=== PATIENT | female | born 1985 | race Caucasian/White ===

== ENCOUNTER 2021-08-26 14:49 | Inpatient (IN) ==
[2021-08-26] MEDS ORDERED: MetroNIDAZOLE 500 MG/100 ML 500 MG/100 ML BAG IVPB ONE (15:48)
[2021-08-26] MEDS ORDERED: Cefepime HCl 2,000 MG in 0.9 % Sodium Chloride 10 ML IVP ONE (15:48)
[2021-08-26] MEDS ORDERED: Isovue-370 500 ML BOTTLE IVP ONE (15:49)
[2021-08-26] MEDS: 0.9 % Sodium Chloride 1,000 ML IVC SCH ×2 (15:58→16:58)
[2021-08-26 16:10] LABS: Basophils % 0.1 %; Hemoglobin 6.9 g/dL (11.5-15.4); Monocytes % 4.7 %; Red Blood Count 3.14 M/mcL (3.82-4.97)
[2021-08-26 16:11] LABS: Hematocrit 21.1 % (35.3-44.9); Immature Granulocytes % 1.8 % (0-4); Immature Platelets 33.1 % (1.1-6.1); Lymphocytes % 6.5 %; Mean Corpuscular HGB Conc 32.7 g/dL (31.6-35.5); Mean Corpuscular Volume 67.2 fL (83.0-100.0); Monocytes # 0.7 K/mcL (0.0-1.3); Nucleated Red Blood Cells 0.2 /100 WBC (0); Red Cell Distribution Width 19.4 % (11.5-14.5); Segmented Neutrophils % 86.9 %; White Blood Count 14.8 K/mcL (4.3-11.1)
[2021-08-26 16:13] LABS: VBG HCO3 22 mEq/L (21-27); VBG PCO2 32 mmHg (41-51); VBG PH 7.44 pH Units (7.32-7.42); VBG PO2 43 mmHg (25-50)
[2021-08-26 16:15] LABS: INR 1.6; Prothrombin Time 18.2 Seconds (9.4-12.1)
[2021-08-26 16:17] LABS: Activated Partial Thrombo Time 22.2 Seconds (26.0-36.0)
[2021-08-26 16:31] LABS: Platelet Count 34 K/mcL (140-400)
[2021-08-26 16:32] LABS: Neutrophils # 12.9 K/mcL (1.6-8.9)
[2021-08-26 16:33] LABS: Anisocytosis 1+ (Not Present); Hypochromasia Present (Not Present); Microcytosis Present (Not Present); Ovalocytes 1+ (Not Present); Platelet Estimate Marked Decrease (Normal); Polychromasia 1+ (Not Present); Toxic Granulation Present (Not Present)
[2021-08-26 16:36] LABS: Alanine Aminotransferase 35 Units/L (7-52); Albumin 2.5 g/dL (3.5-5.7); Albumin/Globulin Ratio 0.6 (1.1-2.2); Alkaline Phosphatase 129 Units/L (34-104); Aspartate Amino Transferase 92 Units/L (13-39); BUN/Creatinine Ratio 45 (6-26); Bilirubin,Direct 0.5 mg/dL (0.0-0.2); Bilirubin,Indirect 0.5 mg/dL (0.0-1.0); Blood Urea Nitrogen 40 mg/dL (6-20); Calcium 7.4 mg/dL (8.6-10.3); Carbon Dioxide 22 mEq/L (23-29); Chloride 86 mEq/L (98-107); Globulin 4.4 g/dL (2.4-3.5); Glucose 135 mg/dL (70-105); Lipase 124 Units/L (11-82); Magnesium 2.6 mg/dL (1.6-2.6); Osmolality,Calculated 268 (280-300); Phosphorous 4.2 mg/dL (2.7-4.5); Potassium 3.5 mEq/L (3.5-5.1); Sodium 123 mEq/L (136-145); Total Protein 6.9 g/dL (6.4-8.9); Troponin I < 0.03 ng/mL (< 0.04); eGFR For African Americans > 60 (> 60); eGFR For Non-African Americans > 60 (> 60)
[2021-08-26 16:41] LABS: Amorphous Sediment,Urine Few per hpf (None-Few); Bacteria,Urine Few per hpf (None-Few); Bilirubin,Urine Negative (Negative); Blood,Urine Negative (Negative); Clarity,Urine Turbid (Clear); Color,Urine Yellow (Yellow); Glucose,Urine (UA) Normal (Normal); Hyaline Casts,Urine Few per lpf (None Seen); Ketones,Urine Negative (Negative); Leukocyte Esterase,Urine Trace (Negative); Mucus,Urine Few per lpf (None-Few); Nitrite,Urine Negative (Negative); Protein,Urine 30 mg/dL (Neg-Trace); RBC,Urine 0-3 per hpf (0-3); Specific Gravity,Urine 1.015 (1.010-1.025); Squamous Epithelial Cell,Urine Few per hpf (None-Few); Urobilinogen,Urine Normal (Normal)
[2021-08-26] MEDS ORDERED: 0.9 % Sodium Chloride 1,000 ML IVC ONE ×2 (16:59→21:00)
[2021-08-26] MEDS ORDERED: Gadolinium Contrast Agent (WT Based) IV PRN (17:12)
[2021-08-26 17:43] LABS: Amphetamine Screen,Urine Negative ng/mL (Cutoff=1000); Barbiturate Screen,Urine Negative ng/mL (Cutoff=200); Benzodiazepines Screen,Urine Positive ng/mL (Cutoff=200); Cannabinoid Screen,Urine Negative ng/mL (Cutoff = 50); Cocaine Screen,Urine Negative ng/mL (Cutoff= 300); Opiate Screen,Urine Negative ng/mL (Cutoff=300); Phencyclidine Screen,Urine Negative ng/mL (Cutoff=25)
[2021-08-26] MEDS ORDERED: *HR* Heparin 5,000 UNIT/ML VIAL IVP PRN ×2 (18:41)
[2021-08-26] MEDS ORDERED: *HR* Heparin 5,000 UNIT/ML VIAL IVP ONE (18:41)
[2021-08-26] MEDS ORDERED: Heparin 25,000UNIT/250ML 1/2NS 25,000 UNIT/250 ML IV.SOLN IVC SCH (18:45)
[2021-08-26] MEDS: Norepinephrine 4 MG/254 ML IV.SOLN IVC SCH ×2 (19:48→22:35)
[2021-08-26] MEDS ORDERED: Morphine Sulfate 2 MG/ML SYRINGE IVP ONE ×2 (19:54→21:11)
[2021-08-26] MEDS: Calcium Gluconate 1gm/50mL 1 GM/50 ML BAG IVPB SCH ×2 (19:58→20:23)
[2021-08-26] MEDS ORDERED: Naloxone 0.4 MG/ML INJ IVP PRN (21:53)
[2021-08-26] MEDS ORDERED: Perflutren Lipid Microsphere 1.3 ML in 0.9 % Sodium Chloride 8.7 ML IVP PRN (22:17)
[2021-08-26 22:35] LABS: Bilirubin,Urine Negative (Negative); Blood,Urine Negative (Negative); Clarity,Urine Clear (Clear); Color,Urine Light-Yellow (Yellow); Glucose,Urine (UA) Normal (Normal); Ketones,Urine Negative (Negative); Leukocyte Esterase,Urine Negative (Negative); Mucus,Urine Few per lpf (None-Few); Nitrite,Urine Negative (Negative); Protein,Urine Trace mg/dL (Neg-Trace); Specific Gravity,Urine 1.029 (1.010-1.025); Urobilinogen,Urine Normal (Normal)
[2021-08-26] MEDS: Albumin 25% 25gram/100mL 25 GM/100 ML IV.SOLN IVPB SCH (22:35)
[2021-08-26] MEDS ORDERED: 0.9 % Sodium Chloride 1,000 ML IVC SCH (23:00)
[2021-08-26 23:28] LABS: Basophils % 0.1 %
[2021-08-26 23:30] LABS: Hematocrit 18.1 % (35.3-44.9); Immature Granulocytes % 1.5 % (0-4); Immature Platelets 23.1 % (1.1-6.1); Lymphocytes # 1.2 K/mcL (0.6-4.6); Lymphocytes % 6.6 %; Mean Corpuscular Volume 68.6 fL (83.0-100.0); Monocytes # 1.5 K/mcL (0.0-1.3); Monocytes % 8.2 %; Nucleated Red Blood Cells 0.1 /100 WBC (0); Red Blood Count 2.64 M/mcL (3.82-4.97); Red Cell Distribution Width 19.5 % (11.5-14.5); Segmented Neutrophils % 83.6 %; White Blood Count 18.4 K/mcL (4.3-11.1)
[2021-08-26 23:31] LABS: Platelet Count 34 K/mcL (140-400)
[2021-08-26 23:32] LABS: Neutrophils # 15.4 K/mcL (1.6-8.9)
[2021-08-26 23:33] LABS: Hemoglobin 5.8 g/dL (11.5-15.4)
[2021-08-26 23:37] LABS: Heparin anti-factor XA UFH 0.04 IU/mL (0.30-0.70); INR 1.5; Prothrombin Time 16.5 Seconds (9.4-12.1)
[2021-08-26] MEDS ORDERED: 0.9 % Sodium Chloride 250 ML IVC SCH (23:45)
[2021-08-26 23:46] LABS: Anisocytosis 2+ (Not Present); Microcytosis Present (Not Present); Platelet Estimate Marked Decrease (Normal); Polychromasia 1+ (Not Present)
[2021-08-26 23:47] LABS: BUN/Creatinine Ratio 44 (6-26); Blood Urea Nitrogen 23 mg/dL (6-20); Calcium 6.6 mg/dL (8.6-10.3); Carbon Dioxide 22 mEq/L (23-29); Chloride 102 mEq/L (98-107); Glucose 128 mg/dL (70-105); Lactate Dehydrogenase 187 Units/L (140-271); Osmolality,Calculated 277 (280-300); Potassium 3.1 mEq/L (3.5-5.1); Sodium 131 mEq/L (136-145); eGFR For African Americans > 60 (> 60); eGFR For Non-African Americans > 60 (> 60)
[2021-08-26] MEDS ORDERED: Acetaminophen IV 1,000 MG/100 ML BAG IVPB ONE (23:47)
[2021-08-26] MEDS ORDERED: Famotidine 20 MG/2 ML VIAL IVP ONE (23:48)
[2021-08-27] MEDS ORDERED: Calcium Gluconate 1gm/50mL 1 GM/50 ML BAG IVPB PRN (01:54)
[2021-08-27] MEDS ORDERED: Piperacillin/Tazobactam 3.375 GM in 0.9 % Sodium Chloride Mini Bag 100 ML IVPB SCH (03:00)
[2021-08-27] MEDS: Ringers Solution, Lactated 1,000 ML IVC SCH (03:15)
[2021-08-27 03:47] LABS: Campylobacter by PCR Not detected (Not detect)
[2021-08-27 03:48] LABS: C.difficile Toxin A/B Gene PCR DETECTED (Not detect)
[2021-08-27 03:49] LABS: Adenovirus F 40/41 PCR Not detected (Not detect); Astrovirus PCR Not detected (Not detect); Cryptosporidium by PCR Not detected (Not detect); Cyclospora cayetanensis PCR Not detected (Not detect); E. coli O157 by PCR Not detected (Not detect); Entamoeba histolytica PCR Not detected (Not detect); Enteroaggregative E.coli(EAEC) Not detected (Not detect); Enteropathogenic E.coli(EPEC) Not detected (Not detect); Enterotoxigenic E.coli (ETEC) Not detected (Not detect); Giardia lamblia PCR Not detected (Not detect); Norovirus GI/GII PCR Not detected (Not detect); Plesiomonas shigelloides PCR Not detected (Not detect); Rotavirus A PCR Not detected (Not detect); Salmonella PCR Not detected (Not detect); Sapovirus PCR Not detected (Not detect); Shig/EnteroinvasiveE coli EIEC Not detected (Not detect); Shigalike tox-prod E coli STEC Not detected (Not detect); Vibrio PCR Not detected (Not detect); Vibrio cholerae PCR Not detected (Not detect); Yersinia enterocolitica PCR Not detected (Not detect)
[2021-08-27 04:45] LABS: Enterococcus faecalis by PCR Not Detected (Not Detect); Enterococcus faecium by PCR Not Detected (Not Detect); Staphylococcus by PCR Not Detected (Not Detect); mecA/C & MREJ (MRSA) Gene Not Detected (Not Detect)
[2021-08-27 04:46] LABS: A.calcoaceticus-baumannii cplx Not Detected (Not Detect); Bacteroides fragilis by PCR Not Detected (Not Detect); Candida albicans by PCR Not Detected (Not Detect); Candida auris by PCR Not Detected (Not Detect); Candida glabrata by PCR Not Detected (Not Detect); Candida krusei by PCR Not Detected (Not Detect); Candida parapsilosis by PCR Not Detected (Not Detect); Candida tropicalis by PCR Not Detected (Not Detect); Crypto. neoformans/gattii PCR Not Detected (Not Detect); Enterobacter cloacae Cmplx PCR Not Detected (Not Detect); Enterobacterales by PCR Not Detected (Not Detect); Escherichia coli by PCR Not Detected (Not Detect); Klebs. pneumoniae group by PCR Not Detected (Not Detect); Klebsiella aerogenes by PCR Not Detected (Not Detect); Klebsiella oxytoca by PCR Not Detected (Not Detect); Proteus by PCR Not Detected (Not Detect); Pseudomonas aeruginosa by PCR Not Detected (Not Detect); Salmonella species by PCR Not Detected (Not Detect); Serratia marcescens by PCR Not Detected (Not Detect); Staph epidermidis by PCR Not Detected (Not Detect); Staph lugdunensis by PCR Not Detected (Not Detect); Staphylococcus aureus by PCR DETECTED (Not Detect); Stenotrophomonas maltophilia Not Detected (Not Detect); Streptococcus agalactiae(B)PCR Not Detected (Not Detect); Streptococcus by PCR Not Detected (Not Detect); Streptococcus pneumoniae PCR Not Detected (Not Detect); Streptococcus pyogenes (A) PCR Not Detected (Not Detect)
[2021-08-27 05:06] LABS: Alanine Aminotransferase 23 Units/L (7-52); Albumin 1.8 g/dL (3.5-5.7); Albumin/Globulin Ratio 0.6 (1.1-2.2); Alkaline Phosphatase 86 Units/L (34-104); Aspartate Amino Transferase 56 Units/L (13-39); Bilirubin,Direct 0.4 mg/dL (0.0-0.2); Bilirubin,Indirect 0.4 mg/dL (0.0-1.0); Bilirubin,Total 0.8 mg/dL (0.3-1.0); Globulin 3.2 g/dL (2.4-3.5)
[2021-08-27 05:08] LABS: Basophils % 0.2 %; Hemoglobin 6.3 g/dL (11.5-15.4); Lymphocytes % 10.7 %
[2021-08-27 05:10] LABS: Eosinophils % 0.2 %; Immature Granulocytes % 1.5 % (0-4); Immature Platelets 22.5 % (1.1-6.1); Lymphocytes # 1.2 K/mcL (0.6-4.6); Mean Corpuscular HGB Conc 33.2 g/dL (31.6-35.5); Mean Corpuscular Hemoglobin 24.3 pg (28.0-33.3); Mean Corpuscular Volume 73.4 fL (83.0-100.0); Monocytes % 9.4 %; Neutrophils # 8.6 K/mcL (1.6-8.9); Red Blood Count 2.59 M/mcL (3.82-4.97); Red Cell Distribution Width 22.8 % (11.5-14.5)
[2021-08-27 05:14] LABS: INR 1.6; Prothrombin Time 17.5 Seconds (9.4-12.1)
[2021-08-27 05:28] LABS: % Iron Saturation 16 % (15-50); Alanine Aminotransferase 18 Units/L (7-52); Albumin/Globulin Ratio 0.7 (1.1-2.2); Alkaline Phosphatase 69 Units/L (34-104); Aspartate Amino Transferase 42 Units/L (13-39); BUN/Creatinine Ratio 46 (6-26); Blood Urea Nitrogen 22 mg/dL (6-20); Calcium 6.4 mg/dL (8.6-10.3); Carbon Dioxide 22 mEq/L (23-29); Chloride 106 mEq/L (98-107); Globulin 2.8 g/dL (2.4-3.5); Glucose 107 mg/dL (70-105); Iron 28 mcg/dL (50-170); Osmolality,Calculated 280 (280-300); Sodium 133 mEq/L (136-145); Total Protein 4.8 g/dL (6.4-8.9); Transferrin 122 mg/dL (203-362); eGFR For African Americans > 60 (> 60); eGFR For Non-African Americans > 60 (> 60)
[2021-08-27 05:30] LABS: Platelet Count 28 K/mcL (140-400)
[2021-08-27 05:31] LABS: Anisocytosis 3+ (Not Present); Microcytosis Present (Not Present); Platelet Estimate Decreased (Normal); Poikilocytosis 1+ (Not Present); Polychromasia 1+ (Not Present); Target Cells 1+ (Not Present)
[2021-08-27 05:45] LABS: Ferritin 259 ng/mL (10-120)
[2021-08-27] MEDS ORDERED: 0.9 % Sodium Chloride 250 ML IVC SCH (05:45)
[2021-08-27] MEDS: Potassium Chloride 40 MEQ/200 ML BAG IVPB PRN ×2 (05:47→20:57)
[2021-08-27] MEDS: Calcium Gluconate 1gm/50mL 1 GM/50 ML BAG IVPB SCH ×2 (05:48→07:24)
[2021-08-27 05:51] LABS: Folate 11.6 ng/mL (3.0-16.0)
[2021-08-27 06:03] LABS: VBG Ionized Calcium 1.07 mmol/L (1.15-1.35)
[2021-08-27 06:12] LABS: Hepatitis B Surface Antigen Nonreactive (Nonreactive)
[2021-08-27] MEDS: Albumin 25% 25gram/100mL 25 GM/100 ML IV.SOLN IVPB SCH ×3 (06:29→22:35)
[2021-08-27 06:41] LABS: HIV-1&2 Antibody & p24 Ag Nonreactive (Nonreactive); Hepatitis A Antibody IgM Nonreactive (Nonreactive)
[2021-08-27 10:13] LABS: Basophils % 0.2 %
[2021-08-27 10:14] LABS: Eosinophils % 0.2 %; Hemoglobin 8.8 g/dL (11.5-15.4); Immature Granulocytes % 1.3 % (0-4); Immature Platelets 23.4 % (1.1-6.1); Lymphocytes # 0.8 K/mcL (0.6-4.6); Lymphocytes % 6.4 %; Mean Corpuscular HGB Conc 32.6 g/dL (31.6-35.5); Mean Corpuscular Hemoglobin 24.5 pg (28.0-33.3); Mean Corpuscular Volume 75.2 fL (83.0-100.0); Monocytes # 0.8 K/mcL (0.0-1.3); Monocytes % 6.3 %; Neutrophils # 10.4 K/mcL (1.6-8.9); Red Blood Count 3.59 M/mcL (3.82-4.97); Red Cell Distribution Width 21.3 % (11.5-14.5); Segmented Neutrophils % 85.6 %; White Blood Count 12.1 K/mcL (4.3-11.1)
[2021-08-27] MEDS: MetroNIDAZOLE 500 MG/100 ML 500 MG/100 ML BAG IVPB SCH ×2 (10:19→15:27)
[2021-08-27 10:20] LABS: Platelet Count 26 K/mcL (140-400)
[2021-08-27 11:31] LABS: Hepatitis C Virus Antibody Reactive (Nonreactive)
[2021-08-27 12:11] LABS: BUN/Creatinine Ratio 44 (6-26); Blood Urea Nitrogen 18 mg/dL (6-20); Calcium 7.2 mg/dL (8.6-10.3); Carbon Dioxide 21 mEq/L (23-29); Chloride 108 mEq/L (98-107); Glucose 110 mg/dL (70-105); Magnesium 2.2 mg/dL (1.6-2.6); Osmolality,Calculated 281 (280-300); Potassium 3.9 mEq/L (3.5-5.1); Sodium 134 mEq/L (136-145); eGFR For African Americans > 60 (> 60); eGFR For Non-African Americans > 60 (> 60)
[2021-08-27] MEDS: Vancomycin Oral Soln 125 MG/2.5 ML UDC PO SCH ×4 (15:27→20:46)
[2021-08-27] MEDS: Nafcillin 3,000 MG in 0.9 % Sodium Chloride 100 ML IVPB SCH (17:36)
[2021-08-27] MEDS: Norepinephrine 4 MG/254 ML IV.SOLN IVC SCH ×2 (19:00→20:57)
[2021-08-27 20:51] LABS: Basophils % 0.1 %; Eosinophils % 0.1 %; Hemoglobin 7.8 g/dL (11.5-15.4); Immature Granulocytes % 1.2 % (0-4); Lymphocytes # 0.9 K/mcL (0.6-4.6); Lymphocytes % 9.5 %; Mean Corpuscular HGB Conc 33.9 g/dL (31.6-35.5); Mean Corpuscular Hemoglobin 25.1 pg (28.0-33.3); Monocytes # 0.7 K/mcL (0.0-1.3); Monocytes % 7.3 %; Neutrophils # 7.4 K/mcL (1.6-8.9); Red Blood Count 3.11 M/mcL (3.82-4.97); Red Cell Distribution Width 20.7 % (11.5-14.5); Segmented Neutrophils % 81.8 %; White Blood Count 9.1 K/mcL (4.3-11.1)
[2021-08-27 20:59] LABS: Platelet Count 32 K/mcL (140-400)
[2021-08-27 21:07] LABS: BUN/Creatinine Ratio 25 (6-26); Blood Urea Nitrogen 12 mg/dL (6-20); Calcium 7.2 mg/dL (8.6-10.3); Carbon Dioxide 20 mEq/L (23-29); Chloride 107 mEq/L (98-107); Glucose 147 mg/dL (70-105); Magnesium 2.1 mg/dL (1.6-2.6); Osmolality,Calculated 278 (280-300); Potassium 3.7 mEq/L (3.5-5.1); Sodium 133 mEq/L (136-145); eGFR For African Americans > 60 (> 60); eGFR For Non-African Americans > 60 (> 60)
[2021-08-27 21:24] LABS: Anisocytosis 1+ (Not Present); Hypochromasia Present (Not Present); Microcytosis Present (Not Present); Ovalocytes 1+ (Not Present); Platelet Estimate Marked Decrease (Normal); Target Cells 1+ (Not Present)
[2021-08-28] MEDS: MetroNIDAZOLE 500 MG/100 ML 500 MG/100 ML BAG IVPB SCH ×4 (00:06→23:09)
[2021-08-28] MEDS: Nafcillin 3,000 MG in 0.9 % Sodium Chloride 100 ML IVPB SCH ×5 (00:12→23:10)
[2021-08-28 01:24] LABS: BUN/Creatinine Ratio 22 (6-26); Blood Urea Nitrogen 10 mg/dL (6-20); Calcium 7.3 mg/dL (8.6-10.3); Carbon Dioxide 20 mEq/L (23-29); Chloride 107 mEq/L (98-107); Glucose 119 mg/dL (70-105); Osmolality,Calculated 276 (280-300); Potassium 4.1 mEq/L (3.5-5.1); Sodium 133 mEq/L (136-145); eGFR For African Americans > 60 (> 60); eGFR For Non-African Americans > 60 (> 60)
[2021-08-28] MEDS: Norepinephrine 4 MG/254 ML IV.SOLN IVC SCH ×3 (03:28→19:45)
[2021-08-28] MEDS: Acetaminophen 325 MG TABLET PO PRN ×2 (03:30→22:58)
[2021-08-28 03:34] LABS: Basophils % 0.1 %; Eosinophils % 0.2 %; Hemoglobin 7.3 g/dL (11.5-15.4); Nucleated Red Blood Cells 0.2 /100 WBC (0); Red Cell Distribution Width 20.8 % (11.5-14.5)
[2021-08-28 03:36] LABS: Hematocrit 22.3 % (35.3-44.9); Immature Granulocytes % 1.7 % (0-4); Immature Platelets 17.8 % (1.1-6.1); Lymphocytes # 1.1 K/mcL (0.6-4.6); Lymphocytes % 10.8 %; Mean Corpuscular HGB Conc 32.7 g/dL (31.6-35.5); Mean Corpuscular Hemoglobin 24.2 pg (28.0-33.3); Mean Corpuscular Volume 73.8 fL (83.0-100.0); Monocytes # 0.8 K/mcL (0.0-1.3); Monocytes % 7.8 %; Neutrophils # 8.1 K/mcL (1.6-8.9); Red Blood Count 3.02 M/mcL (3.82-4.97); Segmented Neutrophils % 79.4 %; White Blood Count 10.2 K/mcL (4.3-11.1)
[2021-08-28 03:43] LABS: Platelet Count 28 K/mcL (140-400)
[2021-08-28 03:47] LABS: VBG Ionized Calcium 1.13 mmol/L (1.15-1.35)
[2021-08-28 03:55] LABS: BUN/Creatinine Ratio 24 (6-26); Blood Urea Nitrogen 10 mg/dL (6-20); Calcium 7.2 mg/dL (8.6-10.3); Carbon Dioxide 21 mEq/L (23-29); Chloride 108 mEq/L (98-107); Glucose 112 mg/dL (70-105); Magnesium 1.9 mg/dL (1.6-2.6); Osmolality,Calculated 278 (280-300); Phosphorous 1.3 mg/dL (2.7-4.5); Potassium 3.8 mEq/L (3.5-5.1); Sodium 134 mEq/L (136-145); eGFR For African Americans > 60 (> 60); eGFR For Non-African Americans > 60 (> 60)
[2021-08-28] MEDS: Ringers Solution, Lactated 1,000 ML IVC SCH (07:26)
[2021-08-28] MEDS: Albumin 25% 25gram/100mL 25 GM/100 ML IV.SOLN IVPB SCH ×3 (08:14→23:01)
[2021-08-28] MEDS: Vancomycin Oral Soln 125 MG/2.5 ML UDC PO SCH ×4 (08:14→19:48)
[2021-08-28] MEDS ORDERED: 0.9 % Sodium Chloride 1,000 ML IVC SCH (08:30)
[2021-08-28 10:01] LABS: BUN/Creatinine Ratio 22 (6-26); Blood Urea Nitrogen 10 mg/dL (6-20); Calcium 7.1 mg/dL (8.6-10.3); Carbon Dioxide 22 mEq/L (23-29); Chloride 108 mEq/L (98-107); Glucose 157 mg/dL (70-105); Magnesium 2.3 mg/dL (1.6-2.6); Osmolality,Calculated 282 (280-300); Phosphorous 2.1 mg/dL (2.7-4.5); Potassium 3.5 mEq/L (3.5-5.1); Sodium 135 mEq/L (136-145); eGFR For African Americans > 60 (> 60); eGFR For Non-African Americans > 60 (> 60)
[2021-08-28 12:17] LABS: Bacteria,Urine Few per hpf (None-Few); Bilirubin,Urine Negative (Negative); Blood,Urine Trace (Negative); Clarity,Urine Turbid (Clear); Color,Urine Light-Orange (Yellow); Glucose,Urine (UA) Normal (Normal); Hyaline Casts,Urine Moderate per lpf (None Seen); Ketones,Urine Negative (Negative); Leukocyte Esterase,Urine Small (Negative); Mucus,Urine Many per lpf (None-Few); Nitrite,Urine Negative (Negative); Protein,Urine Negative (Neg-Trace); RBC,Urine 0-3 per hpf (0-3); Renal Epithelial Cells,Urine Few per hpf (None-Few); Specific Gravity,Urine 1.025 (1.010-1.025); Squamous Epithelial Cell,Urine Few per hpf (None-Few); Transitional Epi Cells,Urine Few per hpf (None-Few); Urobilinogen,Urine Normal (Normal); WBC,Urine 30-50 per hpf (0-3)
[2021-08-28] MEDS: Dexmedetomidine HCl 400 MCG/100 ML MLS IVC SCH (16:06)
[2021-08-28] MEDS ORDERED: 0.9 % Sodium Chloride 250 ML ONE (19:48)
[2021-08-28 19:50] LABS: Eosinophils % 0.3 %
[2021-08-28 19:52] LABS: Immature Platelets 15.3 % (1.1-6.1); Nucleated Red Blood Cells 0.3 /100 WBC (0); Red Cell Distribution Width 21.2 % (11.5-14.5)
[2021-08-28 20:24] LABS: Basophils % 0.3 %; Hematocrit 21.4 % (35.3-44.9); Hemoglobin 7.3 g/dL (11.5-15.4); Immature Granulocytes % 1.4 % (0-4); Lymphocytes % 12.5 %; Mean Corpuscular HGB Conc 34.1 g/dL (31.6-35.5); Mean Corpuscular Hemoglobin 25.4 pg (28.0-33.3); Mean Corpuscular Volume 74.6 fL (83.0-100.0); Monocytes # 0.5 K/mcL (0.0-1.3); Monocytes % 6.6 %; Neutrophils # 6.1 K/mcL (1.6-8.9); Red Blood Count 2.87 M/mcL (3.82-4.97); Segmented Neutrophils % 78.9 %; White Blood Count 7.7 K/mcL (4.3-11.1)
[2021-08-28 20:25] LABS: Platelet Count 35 K/mcL (140-400)
[2021-08-28 20:28] LABS: Anisocytosis 2+ (Not Present); Hypochromasia Present (Not Present); Microcytosis Present (Not Present); Platelet Estimate Marked Decrease (Normal)
[2021-08-29] MEDS: Norepinephrine 4 MG/254 ML IV.SOLN IVC SCH (02:22)
[2021-08-29 04:13] LABS: VBG Ionized Calcium 1.14 mmol/L (1.15-1.35)
[2021-08-29 04:17] LABS: Basophils % 0.1 %; Eosinophils % 0.5 %; Hematocrit 21.2 % (35.3-44.9); Hemoglobin 6.9 g/dL (11.5-15.4); Immature Granulocytes % 1.8 % (0-4); Immature Platelets 13.7 % (1.1-6.1); Lymphocytes # 1.4 K/mcL (0.6-4.6); Lymphocytes % 17.9 %; Mean Corpuscular HGB Conc 32.5 g/dL (31.6-35.5); Mean Corpuscular Hemoglobin 24.8 pg (28.0-33.3); Mean Corpuscular Volume 76.3 fL (83.0-100.0); Monocytes # 0.5 K/mcL (0.0-1.3); Monocytes % 6.9 %; Neutrophils # 5.6 K/mcL (1.6-8.9); Red Blood Count 2.78 M/mcL (3.82-4.97); Red Cell Distribution Width 21.9 % (11.5-14.5); Segmented Neutrophils % 72.8 %; White Blood Count 7.7 K/mcL (4.3-11.1)
[2021-08-29 04:18] LABS: Platelet Count 34 K/mcL (140-400)
[2021-08-29 04:36] LABS: BUN/Creatinine Ratio 18 (6-26); Blood Urea Nitrogen 9 mg/dL (6-20); Carbon Dioxide 20 mEq/L (23-29); Chloride 110 mEq/L (98-107); Glucose 115 mg/dL (70-105); Magnesium 2.1 mg/dL (1.6-2.6); Osmolality,Calculated 284 (280-300); Phosphorous 2.2 mg/dL (2.7-4.5); Potassium 3.5 mEq/L (3.5-5.1); Sodium 137 mEq/L (136-145); eGFR For African Americans > 60 (> 60); eGFR For Non-African Americans > 60 (> 60)
[2021-08-29] MEDS: Dexmedetomidine HCl 400 MCG/100 ML MLS IVC SCH (05:20)
[2021-08-29] MEDS: Potassium Chloride 40 MEQ/200 ML BAG IVPB PRN ×3 (05:21→13:20)
[2021-08-29] MEDS: Nafcillin 3,000 MG in 0.9 % Sodium Chloride 100 ML IVPB SCH ×3 (05:25→18:32)
[2021-08-29] MEDS: Albumin 25% 25gram/100mL 25 GM/100 ML IV.SOLN IVPB SCH ×3 (05:28→23:13)
[2021-08-29] MEDS: MetroNIDAZOLE 500 MG/100 ML 500 MG/100 ML BAG IVPB SCH ×3 (07:48→23:13)
[2021-08-29] MEDS: Vancomycin Oral Soln 125 MG/2.5 ML UDC PO SCH ×4 (07:50→19:40)
[2021-08-29 11:06] LABS: Phosphorous 1.6 mg/dL (2.7-4.5); Potassium 2.9 mEq/L (3.5-5.1)
[2021-08-29] MEDS ORDERED: Potassium Phosphate 44 MEQ in 0.9 % Sodium Chloride 250 ML IVPB ONE (11:45)
[2021-08-29] MEDS: Acetaminophen 325 MG TABLET PO PRN (12:23)
[2021-08-29] MEDS ORDERED: *HR* Metoprolol 5 MG/5 ML VIAL IVP PRN (13:23)
[2021-08-29 18:13] LABS: Hepatitis B Core IgM Nonreactive (Nonreactive)
[2021-08-29 20:46] LABS: BUN/Creatinine Ratio 17 (6-26); Blood Urea Nitrogen 10 mg/dL (6-20); Carbon Dioxide 15 mEq/L (23-29); Chloride 111 mEq/L (98-107); Glucose 120 mg/dL (70-105); Magnesium 1.9 mg/dL (1.6-2.6); Osmolality,Calculated 282 (280-300); Phosphorous 2.9 mg/dL (2.7-4.5); Potassium 4.6 mEq/L (3.5-5.1); Sodium 136 mEq/L (136-145); eGFR For African Americans > 60 (> 60); eGFR For Non-African Americans > 60 (> 60)
[2021-08-29] MEDS: *HR* LORazepam 2 MG/ML VIAL IVP PRN ×2 (21:50→23:06)
[2021-08-29] MEDS ORDERED: Isovue-370 500 ML BOTTLE IVP ONE (23:30)
[2021-08-29 23:41] LABS: ABG Base Excess -15 mEq/L (-2 to 3); ABG HCO3 8 mEq/L (21-27); ABG Oxygen Saturation 92 % (95-98); ABG PCO2 15 mmHg (35-45); ABG PH 7.37 pH Units (7.32-7.45); ABG PO2 62 mmHg (85-104); ABG TCO2 9 mEq/L (20-26)
[2021-08-30] MEDS: Sodium Bicarbonate 150 MEQ in D5% in Water 1,000 ML IVC SCH ×2 (00:20→08:14)
[2021-08-30] MEDS ORDERED: Artificial Tears SOLN 15 ML BOTTLE BOTH EYES PRN (01:05)
[2021-08-30] MEDS ORDERED: Midazolam HCl 50 MG/50 ML IV.SOLN IVC SCH (01:15)
[2021-08-30] MEDS ORDERED: *HR* Heparin 5,000 UNIT/ML VIAL IVP ONE (01:43)
[2021-08-30] MEDS ORDERED: *HR* Heparin 5,000 UNIT/ML VIAL IVP PRN ×2 (01:43)
[2021-08-30] MEDS ORDERED: Heparin 25,000UNIT/250ML 1/2NS 25,000 UNIT/250 ML IV.SOLN IVC SCH (01:45)
[2021-08-30] MEDS: FentaNYL (PF) 1,000 MCG/100 ML IV.SOLN IVC SCH ×3 (01:49→08:53)
[2021-08-30] MEDS: Nafcillin 3,000 MG in 0.9 % Sodium Chloride 100 ML IVPB SCH ×2 (01:53→07:14)
[2021-08-30] MEDS ORDERED: Cisatracurium 200 MG in 0.9 % Sodium Chloride 80 ML IVC SCH (02:00)
[2021-08-30] MEDS ORDERED: *HR* Midazolam HCl 5 MG/5 ML VIAL IVP ONE (03:00)
[2021-08-30] MEDS ORDERED: *HR* Succinylcholine 200 MG/10 ML VIAL IVP ONE (03:00)
[2021-08-30] MEDS ORDERED: *HR* Midazolam HCl 2 MG/2 ML VIAL IVP ONE (03:00)
[2021-08-30] MEDS ORDERED: *HR* Etomidate 20 MG/10 ML AMPUL IVP ONE (03:00)
[2021-08-30] MEDS ORDERED: *HR* Dextrose 50 % in Water (Syg) 50 ML SYRINGE IVP ONE (03:01)
[2021-08-30] MEDS ORDERED: *HR* Dextrose 50 % in Water (Syg) 50 ML SYRINGE ONE (03:02)
[2021-08-30] MEDS ORDERED: Acetaminophen IV 1,000 MG/100 ML BAG IVPB ONE (03:02)
[2021-08-30 03:20] LABS: Basophils # 0.1 K/mcL (0.0-0.2); Basophils % 0.4 %; Eosinophils # 0.1 K/mcL (0.0-0.6); Eosinophils % 0.2 %; Hematocrit 31.1 % (35.3-44.9); Hemoglobin 9.5 g/dL (11.5-15.4); Immature Granulocytes % 9.6 % (0-4); Immature Platelets 23.9 % (1.1-6.1); Lymphocytes % 15.2 %; Mean Corpuscular HGB Conc 30.5 g/dL (31.6-35.5); Monocytes # 1.5 K/mcL (0.0-1.3); Monocytes % 4.6 %; Nucleated Red Blood Cells 0.6 /100 WBC (0); Red Blood Count 3.66 M/mcL (3.82-4.97); Red Cell Distribution Width 23.5 % (11.5-14.5)
[2021-08-30 03:22] LABS: VBG Ionized Calcium 0.96 mmol/L (1.15-1.35)
[2021-08-30] MEDS ORDERED: Calcium Chloride 2,000 MG in 0.9 % Sodium Chloride 100 ML IVPB ONE (03:32)
[2021-08-30] MEDS: Acetaminophen 325 MG TABLET PO PRN (03:35)
[2021-08-30] MEDS: Norepinephrine 4 MG/254 ML IV.SOLN IVC SCH ×4 (03:36→07:10)
[2021-08-30 03:41] LABS: Platelet Count 64 K/mcL (140-400); White Blood Count 32.8 K/mcL (4.3-11.1)
[2021-08-30 03:43] LABS: Alanine Aminotransferase 8 Units/L (7-52); Albumin 3.2 g/dL (3.5-5.7); Albumin/Globulin Ratio 1.3 (1.1-2.2); Alkaline Phosphatase 79 Units/L (34-104); Aspartate Amino Transferase 41 Units/L (13-39); BUN/Creatinine Ratio 13 (6-26); Bilirubin,Total 3.6 mg/dL (0.3-1.0); Blood Urea Nitrogen 12 mg/dL (6-20); Carbon Dioxide 8 mEq/L (23-29); Chloride 105 mEq/L (98-107); Globulin 2.5 g/dL (2.4-3.5); Glucose 67 mg/dL (70-105); Magnesium 2.3 mg/dL (1.6-2.6); Osmolality,Calculated 278 (280-300); Potassium 6.7 mEq/L (3.5-5.1); Sodium 135 mEq/L (136-145); Total Protein 5.7 g/dL (6.4-8.9); eGFR For African Americans > 60 (> 60); eGFR For Non-African Americans > 60 (> 60)
[2021-08-30 03:45] LABS: Anisocytosis 2+ (Not Present)
[2021-08-30 03:46] LABS: Hypochromasia Present (Not Present); Platelet Estimate Decreased (Normal); Reactive Lymphocytes Present (Not Present)
[2021-08-30] MEDS ORDERED: 0.9 % Sodium Chloride 1,000 ML ONE (03:52)
[2021-08-30] MEDS ORDERED: Insulin Human Regular 10 UNIT in 0.9 % Sodium Chloride 10 ML IV ONE (04:13)
[2021-08-30 04:18] VITALS: TEMP 100.3
[2021-08-30 04:22] LABS: mecA/C & MREJ (MRSA) Gene Not Detected (Not Detect)
[2021-08-30 04:23] LABS: A.calcoaceticus-baumannii cplx Not Detected (Not Detect); Bacteroides fragilis by PCR Not Detected (Not Detect); Enterobacterales by PCR Not Detected (Not Detect); Enterococcus faecalis by PCR Not Detected (Not Detect); Enterococcus faecium by PCR Not Detected (Not Detect); Staph epidermidis by PCR Not Detected (Not Detect); Staph lugdunensis by PCR Not Detected (Not Detect); Staphylococcus aureus by PCR DETECTED (Not Detect); Staphylococcus by PCR Not Detected (Not Detect); Streptococcus agalactiae(B)PCR Not Detected (Not Detect); Streptococcus by PCR Not Detected (Not Detect); Streptococcus pneumoniae PCR Not Detected (Not Detect); Streptococcus pyogenes (A) PCR Not Detected (Not Detect)
[2021-08-30 04:24] LABS: Candida albicans by PCR Not Detected (Not Detect); Candida auris by PCR Not Detected (Not Detect); Candida glabrata by PCR Not Detected (Not Detect); Candida krusei by PCR Not Detected (Not Detect); Candida parapsilosis by PCR Not Detected (Not Detect); Candida tropicalis by PCR Not Detected (Not Detect); Crypto. neoformans/gattii PCR Not Detected (Not Detect); Enterobacter cloacae Cmplx PCR Not Detected (Not Detect); Escherichia coli by PCR Not Detected (Not Detect); Klebs. pneumoniae group by PCR Not Detected (Not Detect); Klebsiella aerogenes by PCR Not Detected (Not Detect); Klebsiella oxytoca by PCR Not Detected (Not Detect); Proteus by PCR Not Detected (Not Detect); Pseudomonas aeruginosa by PCR Not Detected (Not Detect); Salmonella species by PCR Not Detected (Not Detect); Serratia marcescens by PCR Not Detected (Not Detect); Stenotrophomonas maltophilia Not Detected (Not Detect)
[2021-08-30] MEDS: Phenylephrine 20 MG in 0.9 % Sodium Chloride 250 ML IVC SCH ×2 (05:14→06:33)
[2021-08-30 05:20] LABS: ABG Base Excess -30 mEq/L (-2 to 3); ABG HCO3 7 mEq/L (21-27); ABG Oxygen Saturation 99 % (95-98); ABG PCO2 66 mmHg (35-45); ABG PH 6.62 pH Units (7.32-7.45); ABG PO2 256 mmHg (85-104); ABG TCO2 9 mEq/L (20-26); Blood Gas VT 420 cc
[2021-08-30] MEDS: Artificial Tears SOLN 15 ML BOTTLE BOTH EYES SCH ×2 (05:47→07:20)
[2021-08-30 06:39] LABS: ABG Base Excess < -30 mEq/L (-2 to 3); ABG HCO3 5 mEq/L (21-27); ABG Oxygen Saturation 99 % (95-98); ABG PCO2 35 mmHg (35-45); ABG PH 6.72 pH Units (7.32-7.45); ABG PO2 282 mmHg (85-104); ABG TCO2 6 mEq/L (20-26); Blood Gas VT 420 cc
[2021-08-30] MEDS: Vancomycin Oral Soln 125 MG/2.5 ML UDC PO SCH (07:20)
[2021-08-30] MEDS: MetroNIDAZOLE 500 MG/100 ML 500 MG/100 ML BAG IVPB SCH (07:20)
[2021-08-30] MEDS: Albumin 25% 25gram/100mL 25 GM/100 ML IV.SOLN IVPB SCH (07:25)
[2021-08-30] MEDS ORDERED: Phenylephrine 100 MG in 0.9 % Sodium Chloride 250 ML IVC SCH (07:45)
[2021-08-30] MEDS ORDERED: Atropine Sulfate 1% 40 DROP/2 ML BOTTLE SL PRN (08:04)
[2021-08-30 08:11] VITALS: BP 57/49; PULSE 125; O2SAT 91
[2021-08-30] MEDS ORDERED: Thiamine (B-1) 100 MG TABLET PO SCH (09:00)
[2021-08-30] MEDS ORDERED: Chlorhexidine Rinse 15 ML MOUTHWASH MM SCH (09:00)
[2021-08-30] MEDS ORDERED: Pantoprazole 40 MG VIAL IVP SCH (09:00)
== END 2021-08-30 09:10 | disposition expired | DRG 720 ==
LOC: EMEROOARM 14:49 → ICNU 14:49
PROVIDERS: ADMIT Internal Medicine; ATTEND Internal Medicine